=== PATIENT | male | born 1970 | race Caucasian/White ===

== ENCOUNTER 2017-05-02 18:56 | Emergency (ER) | END 2017-05-03 01:24 | disposition home or self-care (01) ==

== ENCOUNTER 2017-08-23 16:06 | Emergency (ER) | END 2017-08-23 19:45 | disposition home or self-care (01) ==

== ENCOUNTER 2017-10-11 23:12 | Emergency (ER) | END 2017-10-12 04:44 | disposition home or self-care (01) ==

== ENCOUNTER 2018-10-09 17:22 | Emergency (ER) | payer SELFPAY ==
[~2018-10-09] VITALS: Ht 170.2 cm; Wt 88.0 kg
[~2018-10-09 17:22] MED LIST: ABCC1C PO; ACET-141 PO; CYCL10TA7 PO; HYDR-3498 PO; IBUP-1542 PO; LEVO500T48 PO; NAPR-985 PO; ONDA4TAB14 PO; SULF1TAB31 PO; TRAM50TA2 PO
[2018-10-09 17:29] VITALS: BP 152/98; PULSE 96; RESP 18; Ht 170.2 cm; Wt 88.0 kg
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
== END 2018-10-09 19:56 | disposition home or self-care (01) ==
LOC: FTE 17:22
DX: S30.853A Superficial foreign body of scrotum and testes, initial encounter (principal); X58.XXXA Exposure to other specified factors, initial encounter; Y92.9 Unspecified place or not applicable
CPT/HCPCS: 72170; 76870